=== PATIENT | female | born 1985 | race Caucasian/White ===

== ENCOUNTER 2018-11-12 20:17 | Emergency (ER) | payer OTHER ==
[2018-11-12 20:26] VITALS: BP 138/78; PULSE 117; TEMP 99; BMI 31.1
[2018-11-12] MEDS ORDERED: ACETAMINOPHEN 500 MG TABLET (FP) PO ONE (21:38)
[2018-11-12] MEDS ORDERED: PHENAZOPYRIDINE HCL 100 MG TABLET (FP) PO ONE (21:41)
[2018-11-12 21:51] LABS: HCG,QUALITATIVE URINE Negative; URINE APPEARANCE SLCLOUDY; URINE BILIRUBIN NEGATIVE (<2.0 mg/dL); URINE COLOR YELLOW; URINE GLUCOSE (UA) NEGATIVE (NEGATIVE); URINE KETONE NEGATIVE (NEGATIVE); URINE LEUK ESTERASE 2+ (NEGATIVE); URINE NITRITE NEGATIVE (NEGATIVE); URINE PROTEIN NEGATIVE (NEGATIVE)
[2018-11-12 21:57] LABS: EPI CELLS RARE /HPF (FEW); URINE BACTERIA RARE /hpf (NONE SEEN)
[2018-11-12] MEDS ORDERED: PHENAZOPYRIDINE HCL 100 MG TABLET (FP) ONE (22:00)
[2018-11-12] MEDS ORDERED: ACETAMINOPHEN 500 MG TABLET (FP) ONE (22:00)
--- NOTE | 2018-11-12 22:01 | PDOC ---
History of Present Illness - General Chief Complaint: Back Pain Stated Complaint: BACK PAIN Time Seen by Provider: 11/12/18 21:37 - History of Present Illness Initial Comments: 11/12/18 22:00 32-year-old female without comorbidities presents for evaluation of 3 weeks of dysuria she self medicated with amoxicillin which did not help her she denies fever Past History - Past Medical History Allergies/Adverse Reactions: Allergies Allergy/AdvReac Type Severity Reaction Status Date / Time Penicillins Allergy Verified 11/12/18 20:27 Home Medications: Ambulatory Orders Nitrofurantoin Monohyd/M-Cryst [Macrobid -] 100 mg PO BID #14 capsule 11/12/18 Phenazopyridine HCl [Pyridium] 200 mg PO TID #6 tablet 11/12/18 COPD: No Other medical history: denies - Immunization History Immunization Up to Date: Yes - Suicide/Smoking/Psychosocial Hx Smoking History: Never smoked Have you smoked in the past 12 months: No Hx Alcohol Use: No Drug/Substance Use Hx: No Review of Systems - Review of Systems Constitutional: No: Fever : Yes: Burning, Dysuria, Flank Pain *Physical Exam - Vital Signs Last Vital Signs Temp Pulse Resp BP Pulse Ox 99.0 F 117 H 20 138/78 98 11/12/18 20:22 11/12/18 20:22 11/12/18 20:22 11/12/18 20:22 11/12/18 20:22 - Physical Exam Comments: 11/12/18 22:00 HEAD: NC/AT EYES: Conjuntiva clear Ears: Canals and TM's normal NOSE: No d/c THROAT: Moist mucous membrances, oral pharanx clear, uvula midline NECK: Supple without adenopathy CARDIAC: S1 S2 LUNGS: CTA Full and Equal breath sounds ABDOMEN: Soft NT ND no CVA tenderness MS: Full ROM in all joints without edema NEUROLOGIC: No gross sensory or motor deficits, NVID SKIN: Normal color and temperature no lesions or rashes Moderate Sedation - Procedure Monitoring Vital Signs: Procedure Monitoring Vital Signs Temperature 99.0 F 11/12/18 20:22 Pulse Rate 117 H 11/12/18 20:22 Respiratory Rate 20 11/12/18 20:22 Blood Pressure 138/78 11/12/18 20:22 O2 Sat by Pulse Oximetry (%) 98 11/12/18 20:22 ED Treatment Course - ADDITIONAL ORDERS Additional order review: Laboratory Results 11/12/18 21:30 Urine Color Yellow Urine Appearance Slcloudy Urine pH 6.0 Ur Specific [place] 1.013 Urine Protein Negative Urine Glucose (UA) Negative Urine Ketones Negative Urine Blood 1+ H Urine Nitrite Negative Urine Bilirubin Negative Urine Urobilinogen 2.0 H Ur Leukocyte Esterase 2+ H Urine HCG, Qual Negative *DC/Admit/Observation/Transfer Diagnosis at time of Disposition: Urinary tract bacterial infections - Discharge Dispostion Disposition: HOME Condition at time of disposition: Stable Decision to Admit order: No - Prescriptions Prescriptions: Nitrofurantoin Monohyd/M-Cryst [Macrobid -] 100 mg PO BID #14 capsule Phenazopyridine HCl [Pyridium] 200 mg PO TID #6 tablet - Referrals Referrals: Helen Chavira MD [Staff Physician] - - Patient Instructions Printed Discharge Instructions: Urinary Tract Infection, DI for Urinary Tract Infection (UTI) Additional Instructions: Please take the antibiotics as directed. Return to the emergency room should symptoms worsen or go unresolved and follow up with primary care physician in one to 2 days for further evaluation and treatment options. - Post Discharge Activity
== END 2018-11-12 22:16 | disposition home or self-care (01) ==
LOC: JERFT 20:17
DX: N39.0 Urinary tract infection, site not specified (principal); B96.89 Other specified bacterial agents as the cause of diseases classified elsewhere
CPT/HCPCS: 81003; 81015; 84703; 87086; 87186; 99281-25

== ENCOUNTER 2018-11-13 20:40 | Emergency (ER) | payer OTHER ==
[2018-11-13 20:46] VITALS: BP 123/62; PULSE 108; TEMP 99.7; BMI 31.1
[2018-11-13] MEDS ORDERED: SODIUM CHLORIDE 1,000 ML IV STA (20:48)
[2018-11-13] MEDS ORDERED: CEFTRIAXONE 1 GM in DEXTROSE 5%-WATER - 50 ML IVPB ONE (20:50)
--- NOTE | 2018-11-13 20:58 | PDOC ---
Rapid Medical Evaluation Chief Complaint: Pain, Acute Medical Evaluation: Allergies Allergy/AdvReac Type Severity Reaction Status Date / Time Penicillins Allergy Verified 11/13/18 20:43 Vital Signs Temp Pulse Resp BP Pulse Ox 99.7 F H 108 H 20 123/62 100 11/13/18 20:44 11/13/18 20:44 11/13/18 20:44 11/13/18 20:44 11/13/18 20:44 11/13/18 20:55 Pt c/o: chills and elizabeth back pain, pt seen here yesterday and given macrobid which pt states is taking pt on brief exam: tachy, low grade temp Pt ordered for: labs, urine, ivf, iv ceftriaxone pt to proceed to the ED Discharge Disposition - Diagnosis Back pain - Discharge Dispostion Last Admission D/C Date: 06/01/06 - Referrals - Patient Instructions - Post Discharge Activity
[2018-11-13] MEDS ORDERED: SODIUM CHLORIDE 2,245 ML IV ONE (21:19)
--- NOTE | 2018-11-13 21:20 | PDOC ---
Attending Attestation - Resident Resident Name: Mackenzie Winkler - ED Attending Attestation I have performed the following: I have examined & evaluated the patient, The case was reviewed & discussed with the resident, I agree w/resident's findings & plan, Exceptions are as noted - HPI HPI: 11/13/18 21:46 The patient is a 32 year old femaile with no past medical history who presents to the ED with persistent dysuria and right CVA pain. Patient states she has been experiencing dysuria for the past 3 weeks and self- medicated herself with amoxicillin with minimal relief. Patient was seen in this ED for dysuria yesterday and was prescribed macrobid. Patient returned today now complaining of right CVA pain with persistent dysuria. Patient has a temp of 99.7 here in the ED. The patient denies chest pain, shortness of breath, headache and dizziness. Denies chills, nausea, vomit, diarrhea and constipation. Denies dysuria, frequency, urgency and hematuria. Allergies: NKA Past surgical history: None reported Social history: No reported alcohol, drug or cigarette use. - Physicial Exam PE: abd soft nontender +mild R CVA tenderness general: no acute distress - Medical Decision Making 11/13/18 21:20 was formerly treatd for uti - suspect pyelonephritis will ck labs, will change meds to floroquinalone 11/13/18 23:20 labs reviewd pt well apeparing feels better will dc with po meds pmd fu return precautions were discussed
--- NOTE | 2018-11-13 21:25 | PDOC ---
History of Present Illness - General Chief Complaint: Pain, Acute Stated Complaint: BACK PAIN Time Seen by Provider: 11/13/18 21:08 History Source: Patient Exam Limitations: No Limitations - History of Present Illness Initial Comments: 11/13/18 21:25 32 YOF without PMH who returns to the ED with continued dysuria now with back pain (right CVA is where patient points) also now with subjective fever. The patient states she feels worse than she did during her ED visit yesterday. She was seen yesterday for a few weeks of dysuria for which she had placed herself on amoxicillin without relief. Had UTI yesterday, placed on Macrobid. Had no CVA tenderness yesterday. States has been taking Ibuprofen (last dose at 7 pm today) as well as the Macrobid and pyridium. Past History - Past Medical History Allergies/Adverse Reactions: Allergies Allergy/AdvReac Type Severity Reaction Status Date / Time Penicillins Allergy Verified 11/13/18 20:43 Home Medications: Ambulatory Orders Phenazopyridine HCl [Pyridium] 200 mg PO TID #6 tablet 11/12/18 Acetaminophen [Tylenol] 650 mg PO Q6H PRN #30 tablet 11/14/18 Ciprofloxacin [Cipro -] 500 mg PO Q12H #14 tablet 11/14/18 Ibuprofen [Motrin -] 600 mg PO QID #28 tablet 11/14/18 COPD: No - Surgical History Cholecystectomy: Yes - Immunization History Immunization Up to Date: Yes - Suicide/Smoking/Psychosocial Hx Smoking History: Never smoked Have you smoked in the past 12 months: No Hx Alcohol Use: No Drug/Substance Use Hx: No Review of Systems - Review of Systems Able to Perform ROS?: Yes Comments:: 11/13/18 21:49 GEN: subjective fever, chills, malaise, no generalized weakness, or weight change HEENT: no ear pain, sore throat, vision change, or eye pain CV: no chest pain, palpitations, lightheadedness, syncope, or edema RESP: no cough, wheezing, or SOB GI: no abdominal pain, nausea, vomiting, diarrhea, constipation, or white/black/ bloody stool : dysuria, no hematuria, incontinence, retention, bleeding, or discharge MSK: right flank pain, otherwise no neck/back pain, muscle weakness/pain, or joint swelling/pain NEURO: no headache, seizure, vertigo, numbness, tingling, or focal weakness PSYCH: no substance use, no behavior change SKIN: no jaundice, no rash ROS otherwise negative except as noted in HPI *Physical Exam - Vital Signs Last Vital Signs Temp Pulse Resp BP Pulse Ox 99.7 F H 108 H 20 123/62 100 11/13/18 20:44 11/13/18 20:44 11/13/18 20:44 11/13/18 20:44 11/13/18 20:44 - Physical Exam Comments: 11/13/18 21:51 GENERAL: uncomfortable appearing, A/Ox4, answers questions appropriately, accompanied by mother HEENT: PERRLA, EOMI, moist mucous membranes NECK/BACK: no midline ttp, no spinal stepoff or deformity, no hematoma, full ROM , neck supple CARDIOVASCULAR: regular rate/rhythm, normal S1S2, no MGR, strong peripheral pulses, capillary refill <2 seconds, extremities wwp, no edema LUNGS/RESPIRATORY: no respiratory distress, CTAB GI/ABDOMEN: symmetric [id number], normoactive BS, soft, no ttp, no midline pulsatile masses : right CVA tenderness, no left CVA tenderness EXTREMITIES: no muscle atrophy, no acute deformity, no edema SKIN: warm and dry, no pallor, no jaundice, no rash, no bruising, no skin breakdown, no cuts, no lesions NEUROLOGICAL: GCS 15, CN II-XII grossly intact, 5/5 strength proximally and distally, no facial droop Moderate Sedation - Procedure Monitoring Vital Signs: Procedure Monitoring Vital Signs Temperature 99.7 F H 11/13/18 20:44 Pulse Rate 108 H 11/13/18 20:44 Respiratory Rate 20 11/13/18 20:44 Blood Pressure 123/62 11/13/18 20:44 O2 Sat by Pulse Oximetry (%) 100 11/13/18 20:44 ED Treatment Course - LABORATORY CBC & Chemistry Diagram: 11/13/18 22:12 11/13/18 22:12 Medical Decision Making - Medical Decision Making 11/13/18 21:38 Adult female Pt p/w painful urination for the past few weeks, now with new onset flank pain. Initial Vital Signs Temp Pulse Resp BP Pulse Ox 99.7 F H 108 H 20 123/62 100 11/13/18 20:44 11/13/18 20:44 11/13/18 20:44 11/13/18 20:44 11/13/18 20:44 Exam: As noted in Physical Exam section. DDX IBNLT: pyelonephritis, UTI, less likely renal colic or obstructive uropathy because she has no h/o renal stones and her symptoms started very gradually over many days. Very unlikely PID, TOA, other STD/STI, ovarian torsion, or ovarian cyst because she has no pelvic pain, discharge, etc and notes only dysuria and CVA-area pain. Unlikely ectopic as she had negative hCG yesterday. Unlikely appendicitis without abdominal pain or tenderness W/U ordered: Sepsis order set as noted below TX ordered: IV IVF Ceftriaxone Ofirmev Laboratory Tests 11/13/18 11/13/18 11/13/18 22:12 22:12 22:16 WBC 8.5 RBC 3.93 Hgb 12.2 Hct 34.2 MCV 87.1 MCH 31.0 MCHC 35.6 RDW 13.2 Plt Count 175 MPV 8.7 Absolute Neuts (auto) 7.6 Neutrophils % 88.7 H Lymphocytes % 6.1 L Monocytes % 4.5 Eosinophils % 0.2 Basophils % 0.5 Nucleated RBC % 0 Sodium 137 Potassium 3.7 Chloride 106 Carbon Dioxide 25 Anion Gap 6 L BUN 11 Creatinine 0.9 Creat Clearance w eGFR > 60 Random Glucose 157 H Lactic Acid 1.6 Calcium 8.0 L Total Bilirubin 1.0 AST 30 ALT 43 Alkaline Phosphatase 100 Total Protein 6.5 Albumin 3.1 L 11/14/18 00:14 Reassessment: Patient states she feels much better, appears much more comfortable. Abdominal exam benign at this time, still has right CVA ttp. Repeat VS: DISCHARGE The Pt is appropriate for discharge with close outpatient follow up. Workup is not concerning for emergency-level pathology at this time. The Pt is comfortable with this plan and will follow up with her primary care provider in 1-3 days. She will take OTC pain medications, pyridium, etc. for pain. I am giving her pain control regimen instructions for Tylenol and Motrin alternation. E-Rx sent to her pharmacy for ciprofloxacin to tx presumed pyelonephritis. Specific return precautions are discussed and she will come back to the ER if necessary. *DC/Admit/Observation/Transfer Diagnosis at time of Disposition: Pyelonephritis - Discharge Dispostion Disposition: HOME Condition at time of disposition: Stable Decision to Admit order: No - Prescriptions Prescriptions: Acetaminophen [Tylenol] 650 mg PO Q6H PRN #30 tablet PRN Reason: Back Pain Ciprofloxacin [Cipro -] 500 mg PO Q12H #14 tablet Ibuprofen [Motrin -] 600 mg PO QID #28 tablet - Referrals Referrals: [facility] [place] [Provider Group] - Patient Instructions Printed Discharge Instructions: DI for Kidney Infection Additional Instructions: You were seen in the ER for painful urination, fever, and back pain. We did blood and urine labs and you have a urinary tract infection with a likely kidney infection. We gave you IV fluids, antibiotics, and pain medicines. After our assessment, we do not believe you are having a medical emergency at this time, and we believe you are safe to go home. [employer] and take your prescription for ciprofloxacin antibiotic that we are sending electronically to your pharmacy. Please take over the counter pain medications for pain, following the instructions on the medication label. Below is a good regimen for home pain control that you should follow as needed to control your pain. For painful urination, please take pyridium (azo) which you can get over-the- counter at the pharmacy. This will turn your urine orange and it is nothing to worry about while you are taking this medication. Follow up with your primary doctor in 1-3 days. Call their [facility], tell them you were seen in the ER, and tell them you need an appointment. Please come back to the ER at any time, 24 hours a day, for any new or worsening symptoms, like worsened pain that you cannot control with medications, worsened fever, or other symptoms. If you are having severe or life threatening symptoms, or symptoms that make it unsafe to drive or have someone drive you, please call 911. Take your first dose of ciprofloxacin in the morning (11/14/18). STOP taking the nitrofurantoin (Macrobid) antibiotic. DO NOT take amoxicillin antibiotic. For pain... When you get home, take Tylenol 650 mg. Three hours later, take Motrin/Ibuprofen 600 mg. Three hours later, take Tylenol 650 mg again. Three hours later, take Motrin/Ibuprofen 600 mg again. Etcetera... - Post Discharge Activity
[2018-11-13] MEDS ORDERED: ACETAMINOPHEN 1000 MG/100 ML VIAL (NON FORMULARY) IVPB ONE (21:49)
[2018-11-13 22:27] LABS: BASO % 0.5 % (0-2.0); EOS % 0.2 % (0-4.5); HEMATOCRIT 34.2 % (32.4-45.2); HEMOGLOBIN 12.2 GM/dL (10.7-15.3); LYMPH % 6.1 % (8-40); MCHC 35.6 g/dl (32.0-36.0); MEAN CELL VOLUME 87.1 fl (80-96); MEAN PLT VOLUME 8.7 fl (7.5-11.1); MONO % 4.5 % (3.8-10.2); NEUT % 88.7 % (42.8-82.8); PLATELET COUNT 175 K/MM3 (134-434); RBC 3.93 M/mm3 (3.60-5.2); RDW 13.2 % (11.6-15.6); WHITE BLOOD COUNT 8.5 K/mm3 (4.0-10.0)
[2018-11-13] MEDS ORDERED: ACETAMINOPHEN INJECTION 100 ML IVPB ONE (22:27)
[2018-11-13] MEDS ORDERED: CEFTRIAXONE 1 GM/50 ML BAG ONE (22:27)
[2018-11-13 23:34] LABS: ALBUMIN 3.1 g/dl (3.4-5.0); ALK PHOS 100 U/L (45-117); BLOOD UREA NITROGEN 11 mg/dL (7-18); CHLORIDE 106 mmol/L (98-107); CREATININE 0.9 mg/dL (0.55-1.3); GLUCOSE,RANDOM 157 mg/dL (74-106); POTASSIUM 3.7 mmol/L (3.5-5.1); SGOT/AST 30 U/L (15-37); SGPT/ALT 43 U/L (13-61); SODIUM 137 mmol/L (136-145); TOT PROT 6.5 g/dl (6.4-8.2)
[2018-11-13 23:35] LABS: ANION GAP 6 MMOL/L (8-16); CO2 25 mmol/L (21-32)
[2018-11-14] MEDS ORDERED: KETOROLAC TROMETHAMINE 30 MG/1 ML VIAL IVPUSH ONE (00:14)
[2018-11-14] MEDS ORDERED: KETOROLAC TROMETHAMINE 15 MG/ML VIAL ONE (00:47)
== END 2018-11-14 01:04 | disposition home or self-care (01) ==
LOC: JER 20:40
PROC: 3E0337Z Introduction of Electrolytic and Water Balance Substance into Peripheral Vein, Percutaneous Approach (ICD-10-PCS; principal; 2018-11-13)
PROC: 3E03329 Introduction of Other Anti-infective into Peripheral Vein, Percutaneous Approach (ICD-10-PCS; 2018-11-13)
DX: N12 Tubulo-interstitial nephritis, not specified as acute or chronic (principal)
CPT/HCPCS: 36415; 80053; 83605; 85025; 87040; 87186; 99283-25; J0131; J7030

== ENCOUNTER 2023-10-08 17:34 | Emergency (ER) | payer OTHER ==
[2023-10-08 17:41] VITALS: BP 110/68; PULSE 78; RESP 18; TEMP 98.1; BMI 30.9
[2023-10-08 19:05] LABS: BASO % 0.5 % (0-2.0); EOS % 0.5 % (0-4.5); HEMATOCRIT 39.3 % (32.4-45.2); HEMOGLOBIN 13.4 GM/dL (10.7-15.3); LYMPH % 30.5 % (8-40); MCH 29.6 pg (25.7-33.7); MEAN PLT VOLUME 9.1 fl (7.5-11.1); MONO % 5.2 % (3.8-10.2); NEUT % 63.3 % (42.8-82.8); PLATELET COUNT 243 10^3/uL (134-434); RBC 4.52 M/mm3 (3.60-5.2); RDW 13.2 % (11.6-15.6); WHITE BLOOD COUNT 9.1 K/mm3 (4.0-10.0)
[2023-10-08 19:05] LABS: EPI CELLS 1 /uL (0-25.1); HCG,QUALITATIVE URINE Negative; HYALINE CASTS 0 /uL (0-3.1); PH,URINE 7.5 (5.0-8.0); URINE APPEARANCE TURBID; URINE BACTERIA 1511 /uL (0-1359); URINE BILIRUBIN NEGATIVE (NEGATIVE); URINE COLOR DK YELLOW; URINE GLUCOSE (UA) NEGATIVE (NEGATIVE); URINE KETONE TRACE (NEGATIVE); URINE LEUK ESTERASE 2+ (NEGATIVE); URINE NITRITE POSITIVE (NEGATIVE); URINE PROTEIN NEGATIVE (NEGATIVE); URINE WBC 287 /uL (0-25.8)
[2023-10-08] MEDS ORDERED: ACETAMINOPHEN 500 MG TABLET (FP) PO ONE (19:06)
[2023-10-08] MEDS ORDERED: ACETAMINOPHEN 500 MG TABLET (FP) ONE (19:07)
[2023-10-08] MEDS ORDERED: NITROFURANTOIN MONOHYD/M-CRYST 100 MG CAPSULE PO STA (19:30)
[2023-10-08 19:33] LABS: POTASSIUM 3.7 mmol/L (3.5-5.1)
[2023-10-08 19:35] LABS: CALCIUM 8.8 mg/dL (8.5-10.1)
[2023-10-08 19:36] LABS: ALBUMIN 3.8 g/dl (3.4-5.0); BLOOD UREA NITROGEN 10.2 mg/dL (7-18)
[2023-10-08 19:39] LABS: CREATININE 0.7 mg/dL (0.55-1.3)
[2023-10-08 19:41] LABS: BILIRUBIN,TOTAL 0.3 mg/dL (0.2-1)
[2023-10-08] MEDS ORDERED: NITROFURANTOIN MACROCRYSTAL 50 MG CAPSULE (FP) ONE (19:45)
== END 2023-10-08 19:48 | disposition home or self-care (01) ==
LOC: JER 17:34
DX: N30.00 Acute cystitis without hematuria (principal); R30.9 Painful micturition, unspecified; R39.15 Urgency of urination; R35.0 Frequency of micturition; R10.30 Lower abdominal pain, unspecified
CPT/HCPCS: 36415; 80053; 81003; 84703; 85025; 87086; 87186; 99283-25

== ENCOUNTER 2023-12-23 12:47 | Emergency (ER) | payer OTHER ==
[2023-12-23 13:18] VITALS: BP 119/72; PULSE 68; RESP 18; TEMP 97.7; BMI 30.2
[2023-12-23] MEDS ORDERED: MAG HYDROX/AL HYDROX/SIMETH 30 ML UNIT-DOSE CUP ONE (16:10)
[2023-12-23] MEDS ORDERED: ONDANSETRON 4 MG/2 ML VIAL ONE (16:10)
[2023-12-23] MEDS: morphine CARPU-JECT 2 MG/1 ML DISP.SYRIN IVPUSH ONE (16:14)
[2023-12-23 16:15] LABS: BASO % 0.1 % (0-2.0); HEMATOCRIT 38.3 % (32.4-45.2); LYMPH % 8.1 % (8-40); MCH 30.2 pg (25.7-33.7); MEAN CELL VOLUME 88.7 fl (80-96); MEAN PLT VOLUME 8.8 fl (7.5-11.1); MONO % 3.2 % (3.8-10.2); NEUT % 88.6 % (42.8-82.8); PLATELET COUNT 249 10^3/uL (134-434); RBC 4.32 M/mm3 (3.60-5.2); RDW 13.1 % (11.6-15.6)
[2023-12-23] MEDS: ONDANSETRON 4 MG/2 ML VIAL IVPUSH ONE (16:15)
[2023-12-23] MEDS: MAG HYDROX/AL HYDROX/SIMETH 30 ML UNIT-DOSE CUP PO ONE (16:15)
[2023-12-23] MEDS ORDERED: FAMOTIDINE 10 MG TABLET ONE (16:16)
[2023-12-23] MEDS: FAMOTIDINE 10 MG TABLET PO ONE (16:17)
[2023-12-23] MEDS ORDERED: ACETAMINOPHEN 325 MG TABLET (FP) ONE (16:22)
[2023-12-23 16:26] LABS: INR 1.1 (0.83-1.09); PROTHROMBIN TIME (PATIENT) 12.7 SEC (9.7-13.0)
[2023-12-23 17:11] LABS: POTASSIUM 4.1 mmol/L (3.5-5.1)
[2023-12-23 17:15] LABS: CALCIUM 8.6 mg/dL (8.5-10.1)
[2023-12-23 17:16] LABS: ALBUMIN 3.7 g/dl (3.4-5.0)
[2023-12-23 17:17] LABS: CREATININE 0.7 mg/dL (0.55-1.3)
[2023-12-23 17:19] LABS: BILIRUBIN,TOTAL 0.6 mg/dL (0.2-1); TOT PROT 6.8 g/dl (6.4-8.2)
[2023-12-23] MEDS ORDERED: morphine SULFATE 4 MG/ML VIAL ONE (18:02)
[2023-12-23] MEDS: morphine CARPU-JECT 4 MG/1 ML DISP.SYRIN IVPUSH ONE (18:06)
[2023-12-23 20:18] LABS: PH,URINE 5.5 (5.0-8.0); URINE APPEARANCE CLEAR; URINE BILIRUBIN NEGATIVE (NEGATIVE); URINE COLOR YELLOW; URINE GLUCOSE (UA) NEGATIVE (NEGATIVE); URINE KETONE NEGATIVE (NEGATIVE); URINE LEUK ESTERASE NEGATIVE (NEGATIVE); URINE NITRITE NEGATIVE (NEGATIVE); URINE PROTEIN TRACE (NEGATIVE)
[2023-12-23] MEDS ORDERED: KETOROLAC TROMETHAMINE 15 MG/ML VIAL ONE (20:55)
[2023-12-23] MEDS: KETOROLAC TROMETHAMINE 15 MG/ML VIAL IVPUSH ONE (21:03)
== END 2023-12-23 21:07 | disposition home or self-care (01) ==
LOC: JER 12:47
PROC: 3E0333Z Introduction of Anti-inflammatory into Peripheral Vein, Percutaneous Approach (ICD-10-PCS; principal; 2023-12-23)
PROC: 3E033GC Introduction of Other Therapeutic Substance into Peripheral Vein, Percutaneous Approach (ICD-10-PCS; 2023-12-23)
PROC: 3E033GC Introduction of Other Therapeutic Substance into Peripheral Vein, Percutaneous Approach (ICD-10-PCS; 2023-12-23)
PROC: 3E033GC Introduction of Other Therapeutic Substance into Peripheral Vein, Percutaneous Approach (ICD-10-PCS; 2023-12-23)
DX: R11.10 Vomiting, unspecified (principal); R10.84 Generalized abdominal pain
CPT/HCPCS: 36415; 74177-TC; 80053; 81003; 83690; 84703; 85025; 85610; 87086; 93005; 93010; 96374; 96375; 96376; 99285-25; Q9967